=== PATIENT | female | born 1940 | race Caucasian/White ===

== ENCOUNTER 2018-04-30 19:29 | Inpatient (IN) | payer MEDICARE ==
[~2018-04-30] VITALS: Ht 157.5 cm; Wt 60.7 kg
[~2018-04-30 19:29] MED LIST: ASPI-650 PO; ASPI325T92 PO; ATOR10TA9 PO; CARB100T4 PO; CARB200T PO; CEFD300C37 PO; CELE200C PO; DOCU-131 PO; GABA300C10 PO; LEVE250T28 PO; OXYC1TAB7 PO
[2018-04-30 21:00] LABS: BASOPHILS # (AUTO) 0.01 x10^3/uL (0-0.1); BASOPHILS % (AUTO) 0 % (0-1); EOSINOPHILS # (AUTO) 0.06 x10^3/uL (0-0.4); EOSINOPHILS % (AUTO) 1 % (1-7); LYMPHOCYTES # (AUTO) 0.68 x10^3/uL (1-3.4); LYMPHOCYTES % (AUTO) 6 % (22-44); MD NO; MEAN CORPUSCULAR HEMOGLOBIN 30.3 pg (27.0-34.8); MEAN CORPUSCULAR VOLUME 91.9 fL (80-100); MONOCYTES # (AUTO) 0.47 x10^3/uL (0.2-0.8); MONOCYTES % (AUTO) 4 % (2-9); NEUTROPHILS # (AUTO) 9.65 x10^3/uL (1.8-6.8); NEUTROPHILS % (AUTO) 89 % (42-75); PLATELET COUNT 310 x10^3/uL (130-400); RED BLOOD COUNT 4.13 x10^6/uL (3.82-5.3); RED CELL DISTRIBUTION WIDTH 13.8 % (9.6-15.2)
[2018-04-30] MEDS ORDERED: SODIUM CHLORIDE FLUSH 10ML SYR IVF ONE (21:00)
[2018-04-30] MEDS ORDERED: SODIUM CHLORIDE 0.9% 1,000ML IVBOLUS ONE (21:00)
[2018-04-30 21:11] LABS: ALANINE AMINOTRANSFERASE 40 U/L (12-78); ALBUMIN 3.2 g/dL (3.4-5.0); ANION GAP 8 mmol/L (5-15); CHLORIDE 111 mmol/L (98-107); CREATININE 1.66 mg/dL (0.55-1.02)
[2018-04-30 21:13] LABS: MICROSCOPIC AUTO
[2018-04-30 21:16] LABS: ALKALINE PHOSPHATASE 107 U/L (45-117); BILIRUBIN,TOTAL 0.2 mg/dL (0.2-1.0); TOTAL PROTEIN 7.4 g/dL (6.4-8.2); TROPONIN I < 0.015 ng/mL (0.000-0.045)
[2018-04-30 21:17] LABS: CULTURE INDICATED? YES
[2018-04-30] MEDS ORDERED: CEFTRIAXONE PMX 1GM/50ML 50 ML IV ONE ×2 (21:30→22:30)
[2018-04-30] MEDS ORDERED: CEFTRIAXONE PMX 1GM/50ML 50 ML ONE (21:46)
[2018-04-30] MEDS ORDERED: SODIUM CHLORIDE 0.9% 1,000 ML IV SCH (22:09)
[2018-04-30] MEDS ORDERED: BISACODYL 10 MG SUPP PR PRN (22:30)
[2018-04-30] MEDS ORDERED: POLYETHYLENE GLYCOL 17 GM PACKET PO PRN (22:30)
[2018-04-30] MEDS ORDERED: ACETAMINOPHEN 325 MG TABLET PO PRN (22:30)
[2018-04-30] MEDS ORDERED: CYCLOBENZAPRINE 10 MG TABLET PO PRN (22:30)
[2018-04-30] MEDS ORDERED: DOCUSATE 100 MG CAPSULE PO PRN (22:30)
[2018-04-30] MEDS ORDERED: morphine SULFATE 10 MG/ML, 1ML IVPush PRN (22:30)
[2018-04-30] MEDS ORDERED: hydrALAzine 20 MG/ML, 1ML IVPush PRN (22:30)
[2018-04-30] MEDS ORDERED: PROMETHAZINE 25 MG/ML, 1ML IM PRN (22:30)
[2018-04-30] MEDS ORDERED: LABETALOL 5MG/ML, 20ML IVPush PRN (22:30)
[2018-04-30] MEDS: CARBAMAZEPINE 200 MG TABLET PO SCH (23:07)
[2018-04-30] MEDS: HEPARIN 5,000 UNITS/ML, 1ML SQ SCH (23:07)
[2018-04-30 23:11] LABS: FREE T4 (FREE THYROXINE) 0.72 ng/dL (0.76-1.46); THYROID STIMULATING HORMONE 0.999 mIU/L (0.358-3.740)
[2018-04-30 23:28] VITALS: BP 115/70
[2018-05-01 00:38] VITALS: BP 99/60
[2018-05-01 04:28] LABS: BASOPHILS # (AUTO) 0.03 x10^3/uL (0-0.1); BASOPHILS % (AUTO) 0 % (0-1); EOSINOPHILS # (AUTO) 0.19 x10^3/uL (0-0.4); EOSINOPHILS % (AUTO) 2 % (1-7); LYMPHOCYTES # (AUTO) 1.48 x10^3/uL (1-3.4); LYMPHOCYTES % (AUTO) 16 % (22-44); MD NO; MEAN CORPUSCULAR HEMOGLOBIN 30.7 pg (27.0-34.8); MEAN CORPUSCULAR HGB CONC 33.4 g/dL (32.4-35.8); MEAN CORPUSCULAR VOLUME 91.7 fL (80-100); MEAN PLATELET VOLUME 8.1 fL (7.4-10.4); MONOCYTES # (AUTO) 0.53 x10^3/uL (0.2-0.8); MONOCYTES % (AUTO) 6 % (2-9); NEUTROPHILS # (AUTO) 6.91 x10^3/uL (1.8-6.8); NEUTROPHILS % (AUTO) 76 % (42-75); PLATELET COUNT 249 x10^3/uL (130-400); RED BLOOD COUNT 3.29 x10^6/uL (3.82-5.3); RED CELL DISTRIBUTION WIDTH 13.6 % (9.6-15.2)
[2018-05-01 04:32] LABS: ALANINE AMINOTRANSFERASE 29 U/L (12-78); ALBUMIN 2.5 g/dL (3.4-5.0); ANION GAP 7 mmol/L (5-15); CALCIUM 7.1 mg/dL (8.5-10.1); CHLORIDE 115 mmol/L (98-107); CREATININE 1.37 mg/dL (0.55-1.02)
[2018-05-01 04:35] LABS: ALKALINE PHOSPHATASE 77 U/L (45-117); BILIRUBIN,TOTAL 0.2 mg/dL (0.2-1.0); CHOL/HDL RATIO 4.4; CHOLESTEROL, TOTAL 144 mg/dL (140-239); HDL CHOL % 23 % (28-40); HDL CHOLESTEROL (DIRECT) 33 mg/dL (40-60); LDL CHOLESTEROL,CALCULATED 91 mg/dL (54-169); LDL/HDL RATIO 2.8 (0.5-3.0); TOTAL PROTEIN 5.8 g/dL (6.4-8.2); TRIGLYCERIDES 101 mg/dL (50-200); VLDL CHOLESTEROL 20 mg/dL (0-25)
[2018-05-01 06:58] VITALS: BP 111/62
[2018-05-01] MEDS: HEPARIN 5,000 UNITS/ML, 1ML SQ SCH ×3 (08:27→23:46)
[2018-05-01] MEDS: CARBAMAZEPINE 200 MG TABLET PO SCH ×2 (08:44→20:07)
[2018-05-01] MEDS ORDERED: GABAPENTIN 300 MG CAPSULE PO SCH (09:00)
[2018-05-01] MEDS ORDERED: GADOBUTROL 7.5 MMOL/7.5 ML PFS ONE (10:03)
[2018-05-01 13:16] VITALS: BP 111/68
[2018-05-01] MEDS: GABAPENTIN 300 MG CAPSULE PO SCH ×2 (16:11→20:06)
[2018-05-01 18:42] VITALS: BP 155/70
[2018-05-01] MEDS: CEFTRIAXONE PMX 2GM/50ML 50 ML IV SCH (20:06)
[2018-05-02 00:50] VITALS: BP 115/66
[2018-05-02 04:55] LABS: ANION GAP 7 mmol/L (5-15); CALCIUM 7.9 mg/dL (8.5-10.1); CHLORIDE 113 mmol/L (98-107); CREATININE 1.21 mg/dL (0.55-1.02)
[2018-05-02 05:07] LABS: BASOPHILS # (AUTO) 0.03 x10^3/uL (0-0.1); BASOPHILS % (AUTO) 0 % (0-1); EOSINOPHILS # (AUTO) 0.26 x10^3/uL (0-0.4); EOSINOPHILS % (AUTO) 4 % (1-7); LYMPHOCYTES # (AUTO) 1.36 x10^3/uL (1-3.4); LYMPHOCYTES % (AUTO) 21 % (22-44); MD NO; MEAN CORPUSCULAR HEMOGLOBIN 30.8 pg (27.0-34.8); MEAN CORPUSCULAR VOLUME 93.4 fL (80-100); MEAN PLATELET VOLUME 8.2 fL (7.4-10.4); MONOCYTES # (AUTO) 0.57 x10^3/uL (0.2-0.8); MONOCYTES % (AUTO) 9 % (2-9); NEUTROPHILS # (AUTO) 4.34 x10^3/uL (1.8-6.8); NEUTROPHILS % (AUTO) 66 % (42-75); PLATELET COUNT 222 x10^3/uL (130-400); RED BLOOD COUNT 3.57 x10^6/uL (3.82-5.3); RED CELL DISTRIBUTION WIDTH 14.1 % (9.6-15.2)
[2018-05-02 06:29] VITALS: BP 123/65
[2018-05-02] MEDS: GABAPENTIN 300 MG CAPSULE PO SCH ×3 (09:11→20:21)
[2018-05-02] MEDS: CARBAMAZEPINE 200 MG TABLET PO SCH ×2 (09:13→20:21)
[2018-05-02] MEDS: HEPARIN 5,000 UNITS/ML, 1ML SQ SCH ×2 (09:16→16:54)
[2018-05-02 12:13] VITALS: BP 129/69
[2018-05-02] MEDS: CEFTRIAXONE PMX 2GM/50ML 50 ML IV SCH (20:20)
[2018-05-02 20:39] VITALS: BP 120/64
[2018-05-03] MEDS: HEPARIN 5,000 UNITS/ML, 1ML SQ SCH ×3 (00:50→17:10)
[2018-05-03 01:45] VITALS: BP 116/71
[2018-05-03 04:26] LABS: BASOPHILS # (AUTO) 0.02 x10^3/uL (0-0.1); BASOPHILS % (AUTO) 0 % (0-1); EOSINOPHILS # (AUTO) 0.25 x10^3/uL (0-0.4); EOSINOPHILS % (AUTO) 3 % (1-7); LYMPHOCYTES # (AUTO) 1.32 x10^3/uL (1-3.4); LYMPHOCYTES % (AUTO) 18 % (22-44); MD NO; MEAN CORPUSCULAR HEMOGLOBIN 30.2 pg (27.0-34.8); MEAN CORPUSCULAR HGB CONC 32.8 g/dL (32.4-35.8); MEAN PLATELET VOLUME 7.9 fL (7.4-10.4); MONOCYTES # (AUTO) 0.71 x10^3/uL (0.2-0.8); MONOCYTES % (AUTO) 9 % (2-9); NEUTROPHILS # (AUTO) 5.22 x10^3/uL (1.8-6.8); NEUTROPHILS % (AUTO) 70 % (42-75); PLATELET COUNT 259 x10^3/uL (130-400); RED BLOOD COUNT 3.79 x10^6/uL (3.82-5.3); RED CELL DISTRIBUTION WIDTH 13.6 % (9.6-15.2)
[2018-05-03 04:40] LABS: ANION GAP 5 mmol/L (5-15); CALCIUM 7.7 mg/dL (8.5-10.1); CHLORIDE 109 mmol/L (98-107); CREATININE 1.27 mg/dL (0.55-1.02)
[2018-05-03 06:55] VITALS: BP 97/59
[2018-05-03] MEDS: GABAPENTIN 300 MG CAPSULE PO SCH ×3 (10:05→20:37)
[2018-05-03] MEDS: CARBAMAZEPINE 200 MG TABLET PO SCH ×2 (10:05→20:38)
[2018-05-03 14:27] VITALS: BP 112/70
[2018-05-03 19:43] VITALS: BP 128/72
[2018-05-04] MEDS: HEPARIN 5,000 UNITS/ML, 1ML SQ SCH ×3 (01:08→16:42)
[2018-05-04 01:48] VITALS: BP 99/60
[2018-05-04 08:33] VITALS: BP 118/64
[2018-05-04] MEDS: GABAPENTIN 300 MG CAPSULE PO SCH ×3 (08:55→21:11)
[2018-05-04] MEDS: CARBAMAZEPINE 200 MG TABLET PO SCH ×2 (08:55→21:13)
[2018-05-04 14:45] VITALS: BP 136/77
[2018-05-04 18:39] VITALS: BP 133/72
[2018-05-05 01:01] VITALS: BP 105/62
[2018-05-05] MEDS: HEPARIN 5,000 UNITS/ML, 1ML SQ SCH ×3 (01:11→16:37)
[2018-05-05] MEDS: CARBAMAZEPINE 200 MG TABLET PO SCH ×2 (09:04→20:55)
[2018-05-05] MEDS: GABAPENTIN 300 MG CAPSULE PO SCH ×3 (09:05→20:56)
[2018-05-05 09:33] VITALS: BP 138/79
[2018-05-05 13:14] LABS: OCCULT BLOOD NEGATIVE (NEGATIVE)
[2018-05-05 13:58] VITALS: BP 104/62
[2018-05-05 20:07] VITALS: BP 118/64
[2018-05-06 00:51] VITALS: BP 108/66
[2018-05-06] MEDS: HEPARIN 5,000 UNITS/ML, 1ML SQ SCH ×3 (00:54→17:11)
[2018-05-06] MEDS ORDERED: ERGOCALCIFEROL 50,000 UNIT CAPSULE PO SCH (07:00)
[2018-05-06 07:30] VITALS: BP 113/80
[2018-05-06] MEDS: GABAPENTIN 300 MG CAPSULE PO SCH ×3 (08:46→21:31)
[2018-05-06] MEDS: CARBAMAZEPINE 200 MG TABLET PO SCH ×2 (08:46→21:32)
[2018-05-06 13:39] VITALS: BP 121/76
[2018-05-06 19:23] VITALS: BP 116/68
[2018-05-07 01:38] VITALS: BP 115/67
[2018-05-07] MEDS: HEPARIN 5,000 UNITS/ML, 1ML SQ SCH ×2 (03:28→11:59)
[2018-05-07 08:57] VITALS: BP 132/70
[2018-05-07] MEDS: CARBAMAZEPINE 200 MG TABLET PO SCH ×2 (09:54→19:14)
[2018-05-07] MEDS: GABAPENTIN 300 MG CAPSULE PO SCH ×2 (09:54→16:23)
[2018-05-07] MEDS ORDERED: ERGO500017 PO (13:25)
[2018-05-07] MEDS ORDERED: ACET325T14 PO (13:25)
[2018-05-07 14:21] VITALS: BP 144/79
== END 2018-05-07 19:48 | disposition short-term general hospital (02) | DRG 54 ==
LOC: ED 21:45 → 3NW 21:53 → ED 21:58
PROVIDERS: ADMIT Internal Medicine; ATTEND Internal Medicine
DX: D32.9 Benign neoplasm of meninges, unspecified (principal); N17.0 Acute kidney failure with tubular necrosis; G40.89 Other seizures; N30.90 Cystitis, unspecified without hematuria; E86.0 Dehydration; M47.816 Spondylosis without myelopathy or radiculopathy, lumbar region; E78.5 Hyperlipidemia, unspecified; B96.20 Unspecified Escherichia coli [E. coli] as the cause of diseases classified elsewhere; Z96.641 Presence of right artificial hip joint; M51.36 Other intervertebral disc degeneration, lumbar region; D18.09 Hemangioma of other sites; E55.9 Vitamin D deficiency, unspecified; K80.20 Calculus of gallbladder without cholecystitis without obstruction; Z85.528 Personal history of other malignant neoplasm of kidney; Z86.011 Personal history of benign neoplasm of the brain; Z90.710 Acquired absence of both cervix and uterus; Z90.5 Acquired absence of kidney; Z88.2 Allergy status to sulfonamides; Z88.8 Allergy status to other drugs, medicaments and biological substances; Z90.49 Acquired absence of other specified parts of digestive tract
CPT/HCPCS: 36415; 70450; 70553; 71045; 72158; 80048; 80053; 80061; 81001; 82272; 82306; 82607; 83036; 83735; 84439; 84443; 84484; 85025; 87077; 87086; 87186; 93005; 96365; 96366; A9585; G0378; J0696; J1644; J7030

== ENCOUNTER 2018-05-16 16:57 | Inpatient (IN) | payer MEDICARE ==
[~2018-05-16] VITALS: Ht 157.5 cm; Wt 66.0 kg
[~2018-05-16 16:57] MED LIST changes: +ACET325T14 PO; +ERGO500017 PO
[2018-05-16 17:50] VITALS: BP 126/67
[2018-05-16] MEDS ORDERED: ONDANSETRON ODT 4 MG PO PRN (19:30)
[2018-05-16] MEDS ORDERED: PLEASE ENTER HEIGHT AND WEIGHT MC SCH (19:30)
[2018-05-16] MEDS ORDERED: ERGOCALCIFEROL 50,000 UNIT CAPSULE PO SCH (19:30)
[2018-05-16] MEDS ORDERED: PROMETHAZINE 25 MG/ML, 1ML IM PRN (19:30)
[2018-05-16] MEDS ORDERED: LABETALOL 5MG/ML, 20ML IVPush PRN (19:30)
[2018-05-16] MEDS ORDERED: GABAPENTIN 300 MG CAPSULE PO PRN (19:30)
[2018-05-16] MEDS ORDERED: ONDANSETRON 2MG/ML, 2ML IVPush PRN (19:30)
[2018-05-16] MEDS ORDERED: hydrALAzine 20 MG/ML, 1ML IVPush PRN (19:30)
[2018-05-16 19:54] LABS: BASOPHILS # (AUTO) 0.02 x10^3/uL (0-0.1); BASOPHILS % (AUTO) 0 % (0-1); EOSINOPHILS # (AUTO) 0.02 x10^3/uL (0-0.4); EOSINOPHILS % (AUTO) 0 % (1-7); LYMPHOCYTES # (AUTO) 0.94 x10^3/uL (1-3.4); LYMPHOCYTES % (AUTO) 9 % (22-44); MD NO; MEAN CORPUSCULAR HGB CONC 33.3 g/dL (32.4-35.8); MEAN CORPUSCULAR VOLUME 93.1 fL (80-100); MEAN PLATELET VOLUME 7.7 fL (7.4-10.4); MONOCYTES # (AUTO) 0.46 x10^3/uL (0.2-0.8); MONOCYTES % (AUTO) 4 % (2-9); NEUTROPHILS # (AUTO) 9.48 x10^3/uL (1.8-6.8); NEUTROPHILS % (AUTO) 87 % (42-75); PLATELET COUNT 371 x10^3/uL (130-400); RED BLOOD COUNT 3.65 x10^6/uL (3.82-5.3); RED CELL DISTRIBUTION WIDTH 13.6 % (9.6-15.2)
[2018-05-16] MEDS ORDERED: DIAZEPAM 5 MG TABLET PO PRN (20:00)
[2018-05-16] MEDS ORDERED: OXYcodone IR 5MG TABLET PO PRN ×2 (20:00→21:00)
[2018-05-16] MEDS ORDERED: ACETAMINOPHEN 325 MG TABLET PO PRN (20:00)
[2018-05-16 20:06] LABS: ANION GAP 10 mmol/L (5-15); CALCIUM 8.5 mg/dL (8.5-10.1); CHLORIDE 106 mmol/L (98-107); CREATININE 0.93 mg/dL (0.55-1.02)
[2018-05-16 20:21] VITALS: BP 122/73
[2018-05-16] MEDS ORDERED: OXYcodone IR 5MG TABLET ONE (20:24)
[2018-05-16] MEDS ORDERED: DEXAMETHASONE 1 MG TABLET PO SCH (21:00)
[2018-05-17] MEDS: OXYcodone IR 5MG TABLET PO PRN (01:23)
[2018-05-17 01:54] VITALS: BP 145/75
[2018-05-17] MEDS ORDERED: OXYcodone IR 5MG TABLET PO PRN (05:00)
[2018-05-17 06:53] VITALS: BP 132/61
[2018-05-17] MEDS ORDERED: MAGNESIUM HYDROXIDE 8%, 30ML UDC PO PRN (07:30)
[2018-05-17] MEDS ORDERED: NYSTATIN TOPICAL POWDER 15GM TP PRN (07:30)
[2018-05-17] MEDS: POLYETHYLENE GLYCOL 17 GM PACKET PO SCH (07:56)
[2018-05-17] MEDS: GABAPENTIN 300 MG CAPSULE PO SCH ×3 (08:10→20:51)
[2018-05-17] MEDS: AMLODIPINE 5 MG TABLET PO SCH (08:10)
[2018-05-17] MEDS: PANTOPROZOLE 40MG TABLET PO SCH (08:10)
[2018-05-17] MEDS: DEXAMETHASONE 1 MG TABLET PO SCH (08:10)
[2018-05-17] MEDS: DOCUSATE 100 MG CAPSULE PO SCH ×3 (08:10→20:51)
[2018-05-17] MEDS: LIDODERM 5% PATCH TD SCH (08:11)
[2018-05-17] MEDS ORDERED: NYSTATIN 500,000 UNITS/5 ML UDC PO SCH (08:30)
[2018-05-17] MEDS: FLUCONAZOLE 400 MG/200 ML 200 ML IV SCH (10:55)
[2018-05-17] MEDS ORDERED: BISACODYL 10 MG SUPP PR PRN (11:00)
[2018-05-17 12:46] VITALS: BP 125/68
[2018-05-17] MEDS: NYSTATIN 500,000 UNITS/5 ML UDC PO SCH ×3 (13:58→20:51)
[2018-05-17 19:06] VITALS: BP 107/69
[2018-05-17] MEDS: MELATONIN 3 MG TABLET PO SCH (20:50)
[2018-05-18 02:36] VITALS: BP 98/61
[2018-05-18] MEDS: NYSTATIN 500,000 UNITS/5 ML UDC PO SCH ×4 (05:58→20:47)
[2018-05-18 07:29] VITALS: BP 116/65
[2018-05-18] MEDS ORDERED: ERGOCALCIFEROL 50,000 UNIT CAPSULE PO SCH (07:30)
[2018-05-18 08:08] LABS: ANION GAP 9 mmol/L (5-15); CHLORIDE 107 mmol/L (98-107); CREATININE 0.99 mg/dL (0.55-1.02)
[2018-05-18] MEDS: AMLODIPINE 5 MG TABLET PO SCH (08:20)
[2018-05-18] MEDS: PANTOPROZOLE 40MG TABLET PO SCH (08:20)
[2018-05-18] MEDS: POLYETHYLENE GLYCOL 17 GM PACKET PO SCH (08:20)
[2018-05-18] MEDS: DOCUSATE 100 MG CAPSULE PO SCH ×2 (08:20→20:47)
[2018-05-18] MEDS: DEXAMETHASONE 1 MG TABLET PO SCH (08:20)
[2018-05-18] MEDS: LIDODERM 5% PATCH TD SCH (08:20)
[2018-05-18] MEDS: GABAPENTIN 300 MG CAPSULE PO SCH ×3 (08:20→20:47)
[2018-05-18 08:22] LABS: BASOPHILS # (AUTO) 0.03 x10^3/uL (0-0.1); BASOPHILS % (AUTO) 0 % (0-1); EOSINOPHILS # (AUTO) 0.04 x10^3/uL (0-0.4); EOSINOPHILS % (AUTO) 0 % (1-7); LYMPHOCYTES # (AUTO) 0.73 x10^3/uL (1-3.4); LYMPHOCYTES % (AUTO) 5 % (22-44); MD NO; MEAN CORPUSCULAR HEMOGLOBIN 30.8 pg (27.0-34.8); MEAN CORPUSCULAR VOLUME 93.4 fL (80-100); MEAN PLATELET VOLUME 8.3 fL (7.4-10.4); MONOCYTES # (AUTO) 0.64 x10^3/uL (0.2-0.8); MONOCYTES % (AUTO) 5 % (2-9); NEUTROPHILS # (AUTO) 12.97 x10^3/uL (1.8-6.8); NEUTROPHILS % (AUTO) 90 % (42-75); PLATELET COUNT 375 x10^3/uL (130-400); RED BLOOD COUNT 3.84 x10^6/uL (3.82-5.3); RED CELL DISTRIBUTION WIDTH 14.1 % (9.6-15.2)
[2018-05-18] MEDS: FLUCONAZOLE 400 MG/200 ML 200 ML IV SCH (09:22)
[2018-05-18] MEDS: SODIUM CHLORIDE 0.45% 1,000 ML IV SCH ×2 (09:58→16:25)
[2018-05-18] MEDS: AMPICILLIN/SULBACTAM 3 GM in SODIUM CHLORIDE 0.9% 100 ML IV SCH ×2 (12:43→18:02)
[2018-05-18 13:02] VITALS: BP 108/69
[2018-05-18 13:10] LABS: MICROSCOPIC AUTO
[2018-05-18 13:12] LABS: CULTURE INDICATED? NO
[2018-05-18] MEDS: DOXYCYCLINE 100 MG in DEXTROSE 5% 250 ML IV SCH (13:48)
[2018-05-18] MEDS: OXYcodone IR 5MG TABLET PO PRN ×2 (13:49→20:47)
[2018-05-18 20:45] VITALS: BP 104/66
[2018-05-18] MEDS: MELATONIN 3 MG TABLET PO SCH (20:47)
[2018-05-19] MEDS: AMPICILLIN/SULBACTAM 3 GM in SODIUM CHLORIDE 0.9% 100 ML IV SCH ×4 (00:41→19:11)
[2018-05-19] MEDS: DOXYCYCLINE 100 MG in DEXTROSE 5% 250 ML IV SCH ×2 (01:48→13:30)
[2018-05-19] MEDS: SODIUM CHLORIDE 0.45% 1,000 ML IV SCH ×2 (01:48→17:08)
[2018-05-19 02:22] VITALS: BP 108/70
[2018-05-19 04:58] LABS: ALBUMIN 2.4 g/dL (3.4-5.0); ANION GAP 9 mmol/L (5-15); BASOPHILS # (AUTO) 0.01 x10^3/uL (0-0.1); BASOPHILS % (AUTO) 0 % (0-1); CALCIUM 7.9 mg/dL (8.5-10.1); CHLORIDE 104 mmol/L (98-107); CREATININE 0.88 mg/dL (0.55-1.02); EOSINOPHILS # (AUTO) 0.11 x10^3/uL (0-0.4); EOSINOPHILS % (AUTO) 1 % (1-7); LYMPHOCYTES # (AUTO) 0.45 x10^3/uL (1-3.4); LYMPHOCYTES % (AUTO) 4 % (22-44); MD NO; MEAN CORPUSCULAR HEMOGLOBIN 31.4 pg (27.0-34.8); MEAN CORPUSCULAR HGB CONC 33.3 g/dL (32.4-35.8); MEAN CORPUSCULAR VOLUME 94.2 fL (80-100); MEAN PLATELET VOLUME 7.9 fL (7.4-10.4); MONOCYTES # (AUTO) 0.59 x10^3/uL (0.2-0.8); MONOCYTES % (AUTO) 5 % (2-9); NEUTROPHILS # (AUTO) 10.25 x10^3/uL (1.8-6.8); NEUTROPHILS % (AUTO) 90 % (42-75); PLATELET COUNT 287 x10^3/uL (130-400); RED BLOOD COUNT 3.26 x10^6/uL (3.82-5.3); RED CELL DISTRIBUTION WIDTH 13.7 % (9.6-15.2)
[2018-05-19] MEDS: NYSTATIN 500,000 UNITS/5 ML UDC PO SCH ×4 (06:20→20:24)
[2018-05-19] MEDS: OXYcodone IR 5MG TABLET PO PRN (06:21)
[2018-05-19 08:30] VITALS: BP 102/61
[2018-05-19] MEDS: LIDODERM 5% PATCH TD SCH (09:00)
[2018-05-19] MEDS: AMLODIPINE 5 MG TABLET PO SCH (09:14)
[2018-05-19] MEDS: DEXAMETHASONE 1 MG TABLET PO SCH (09:14)
[2018-05-19] MEDS: CARBAMAZEPINE 200 MG TABLET PO SCH ×2 (09:14→20:25)
[2018-05-19] MEDS: POLYETHYLENE GLYCOL 17 GM PACKET PO SCH (09:21)
[2018-05-19] MEDS: PANTOPROZOLE 40MG TABLET PO SCH (09:21)
[2018-05-19] MEDS: GABAPENTIN 300 MG CAPSULE PO SCH ×3 (09:21→20:25)
[2018-05-19] MEDS: DOCUSATE 100 MG CAPSULE PO SCH ×2 (09:22→20:25)
[2018-05-19] MEDS: FLUCONAZOLE 400 MG/200 ML 200 ML IV SCH (09:24)
[2018-05-19 14:25] VITALS: BP 100/64
[2018-05-19] MEDS: MELATONIN 3 MG TABLET PO SCH (20:25)
[2018-05-19 21:07] VITALS: BP 108/61
[2018-05-20] MEDS: AMPICILLIN/SULBACTAM 3 GM in SODIUM CHLORIDE 0.9% 100 ML IV SCH ×2 (01:05→06:18)
[2018-05-20] MEDS: DOXYCYCLINE 100 MG in DEXTROSE 5% 250 ML IV SCH (02:06)
[2018-05-20 03:06] VITALS: BP 109/61
[2018-05-20] MEDS: SODIUM CHLORIDE 0.45% 1,000 ML IV SCH ×3 (03:54→23:13)
[2018-05-20 05:16] LABS: BASOPHILS # (AUTO) 0.01 x10^3/uL (0-0.1); BASOPHILS % (AUTO) 0 % (0-1); EOSINOPHILS # (AUTO) 0.11 x10^3/uL (0-0.4); EOSINOPHILS % (AUTO) 1 % (1-7); LYMPHOCYTES # (AUTO) 0.46 x10^3/uL (1-3.4); LYMPHOCYTES % (AUTO) 6 % (22-44); MD NO; MEAN CORPUSCULAR HEMOGLOBIN 31.4 pg (27.0-34.8); MEAN CORPUSCULAR HGB CONC 33.6 g/dL (32.4-35.8); MEAN CORPUSCULAR VOLUME 93.6 fL (80-100); MEAN PLATELET VOLUME 7.6 fL (7.4-10.4); MONOCYTES # (AUTO) 0.46 x10^3/uL (0.2-0.8); MONOCYTES % (AUTO) 6 % (2-9); NEUTROPHILS # (AUTO) 7.37 x10^3/uL (1.8-6.8); NEUTROPHILS % (AUTO) 88 % (42-75); PLATELET COUNT 319 x10^3/uL (130-400); RED BLOOD COUNT 3.26 x10^6/uL (3.82-5.3); RED CELL DISTRIBUTION WIDTH 13.8 % (9.6-15.2)
[2018-05-20 05:18] LABS: ALBUMIN 2.7 g/dL (3.4-5.0); ANION GAP 9 mmol/L (5-15); CALCIUM 8.5 mg/dL (8.5-10.1); CHLORIDE 106 mmol/L (98-107); CREATININE 0.85 mg/dL (0.55-1.02)
[2018-05-20] MEDS: NYSTATIN 500,000 UNITS/5 ML UDC PO SCH ×4 (06:18→20:18)
[2018-05-20] MEDS: FLUCONAZOLE 400 MG/200 ML 200 ML IV SCH (08:22)
[2018-05-20] MEDS: PANTOPROZOLE 40MG TABLET PO SCH (08:22)
[2018-05-20 08:30] VITALS: BP 101/60
[2018-05-20] MEDS: DOCUSATE 100 MG CAPSULE PO SCH ×2 (09:57→20:17)
[2018-05-20] MEDS: GABAPENTIN 300 MG CAPSULE PO SCH ×3 (09:57→20:17)
[2018-05-20] MEDS: POLYETHYLENE GLYCOL 17 GM PACKET PO SCH (09:57)
[2018-05-20] MEDS: CARBAMAZEPINE 200 MG TABLET PO SCH ×2 (09:57→20:18)
[2018-05-20] MEDS: DEXAMETHASONE 1 MG TABLET PO SCH (09:57)
[2018-05-20] MEDS: AMLODIPINE 5 MG TABLET PO SCH (09:58)
[2018-05-20] MEDS: LIDODERM 5% PATCH TD SCH (10:00)
[2018-05-20] MEDS: AMOXICILLIN/CLAV 875-125MG TABLET PO SCH ×2 (13:47→20:17)
[2018-05-20 14:30] VITALS: BP 110/61
[2018-05-20] MEDS: DOXYCYCLINE 100MG TABLET PO SCH ×2 (14:44→20:17)
[2018-05-20 19:42] VITALS: BP 106/62
[2018-05-20] MEDS: MELATONIN 3 MG TABLET PO SCH (20:18)
[2018-05-21 02:00] VITALS: BP 100/54
[2018-05-21] MEDS: SODIUM CHLORIDE 0.45% 1,000 ML IV SCH (05:47)
[2018-05-21] MEDS: NYSTATIN 500,000 UNITS/5 ML UDC PO SCH ×2 (05:49→11:00)
[2018-05-21] MEDS ORDERED: DIAZ5TAB4 PO (07:48)
[2018-05-21] MEDS ORDERED: MELA3TAB2 PO (07:48)
[2018-05-21] MEDS ORDERED: DEXA1TAB5 PO (07:48)
[2018-05-21] MEDS ORDERED: CARB200T4 PO (07:48)
[2018-05-21] MEDS ORDERED: DOXY100T PO (07:48)
[2018-05-21] MEDS ORDERED: LIDO700A20 TD (07:48)
[2018-05-21] MEDS ORDERED: ERGO500017 PO (07:48)
[2018-05-21] MEDS ORDERED: PANT40TA5 PO (07:48)
[2018-05-21] MEDS ORDERED: AMOX1TAB12 PO (07:48)
[2018-05-21 08:00] VITALS: BP 97/57
[2018-05-21] MEDS: LIDODERM 5% PATCH TD SCH (09:00)
[2018-05-21] MEDS ORDERED: FLUCONAZOLE 10 MG/ML ORAL SUSP PO SCH (09:00)
[2018-05-21] MEDS: POLYETHYLENE GLYCOL 17 GM PACKET PO SCH (09:00)
[2018-05-21] MEDS: DOCUSATE 100 MG CAPSULE PO SCH (09:00)
[2018-05-21] MEDS: AMOXICILLIN/CLAV 875-125MG TABLET PO SCH (09:21)
[2018-05-21] MEDS: DOXYCYCLINE 100MG TABLET PO SCH (09:22)
[2018-05-21] MEDS: DEXAMETHASONE 1 MG TABLET PO SCH (09:22)
[2018-05-21] MEDS: PANTOPROZOLE 40MG TABLET PO SCH (09:22)
[2018-05-21] MEDS: GABAPENTIN 300 MG CAPSULE PO SCH (09:22)
[2018-05-21] MEDS: CARBAMAZEPINE 200 MG TABLET PO SCH (09:22)
[2018-05-22] MEDS ORDERED: AMLODIPINE 5 MG TABLET PO SCH (09:00)
== END 2018-05-21 11:43 | DRG 177 ==
LOC: 4NOR 16:57 → 3NW 05-18 11:08
PROVIDERS: ADMIT Hospitalist; ATTEND Hospitalist
DX: J69.0 Pneumonitis due to inhalation of food and vomit (principal); E43 Unspecified severe protein-calorie malnutrition; B37.9 Candidiasis, unspecified; D18.09 Hemangioma of other sites; D64.9 Anemia, unspecified; E78.5 Hyperlipidemia, unspecified; E55.9 Vitamin D deficiency, unspecified; Z96.641 Presence of right artificial hip joint; K44.9 Diaphragmatic hernia without obstruction or gangrene; M47.816 Spondylosis without myelopathy or radiculopathy, lumbar region; Z86.011 Personal history of benign neoplasm of the brain; Z90.710 Acquired absence of both cervix and uterus; Z88.2 Allergy status to sulfonamides; Z88.8 Allergy status to other drugs, medicaments and biological substances
CPT/HCPCS: 36415; 71045; 74230; 80048; 81001; 82040; 83735; 84100; 85025; 87040; 93005; G0378; J0295; J1450; J7060; 92523-GN

== ENCOUNTER 2018-11-28 18:08 | Inpatient (IN) | payer MEDICARE ==
[~2018-11-28] VITALS: Ht 157.5 cm; Wt 63.6 kg
[~2018-11-28 18:08] MED LIST changes: +AMOX1TAB12 PO; +CARB200T4 PO; +DEXA1TAB5 PO; +DIAZ5TAB4 PO; +DOXY100T PO; +LIDO700A20 TD; +MELA3TAB2 PO; +PANT40TA5 PO
--- NOTE | 2018-11-28 18:15 | NUR ---
PT HAS BEEN VOMITING TODAY AND HAS CHILLS, NOT FEELING WELL. DAUGHTER AT BEDSIDE.
[2018-11-28] MEDS ORDERED: ACETAMINOPHEN 325 MG TABLET PO ONE (18:30)
[2018-11-28] MEDS ORDERED: SODIUM CHLORIDE FLUSH 10ML SYR IVF ONE (18:30)
[2018-11-28] MEDS ORDERED: ACETAMINOPHEN 325 MG TABLET ONE (18:34)
[2018-11-28 18:53] LABS: BASOPHILS # (AUTO) 0.02 x10^3/uL (0-0.1); BASOPHILS % (AUTO) 0 % (0-1); EOSINOPHILS # (AUTO) 0.06 x10^3/uL (0-0.4); EOSINOPHILS % (AUTO) 1 % (1-7); LYMPHOCYTES # (AUTO) 0.54 x10^3/uL (1-3.4); LYMPHOCYTES % (AUTO) 5 % (22-44); MD NO; MEAN CORPUSCULAR HEMOGLOBIN 29.6 pg (27.0-34.8); MEAN CORPUSCULAR HGB CONC 32.9 g/dL (32.4-35.8); MEAN CORPUSCULAR VOLUME 90.1 fL (80-100); MEAN PLATELET VOLUME 8.4 fL (7.4-10.4); MONOCYTES # (AUTO) 0.26 x10^3/uL (0.2-0.8); MONOCYTES % (AUTO) 3 % (2-9); NEUTROPHILS # (AUTO) 9.67 x10^3/uL (1.8-6.8); NEUTROPHILS % (AUTO) 92 % (42-75); PLATELET COUNT 241 x10^3/uL (130-400); RED BLOOD COUNT 4.67 x10^6/uL (3.82-5.3); RED CELL DISTRIBUTION WIDTH 13.2 % (9.6-15.2)
[2018-11-28 19:03] LABS: ALANINE AMINOTRANSFERASE 13 U/L (12-78); ALBUMIN 3.2 g/dL (3.4-5.0); ANION GAP 7 mmol/L (5-15); CALCIUM 8.3 mg/dL (8.5-10.1); CHLORIDE 110 mmol/L (98-107)
[2018-11-28 19:06] LABS: ALKALINE PHOSPHATASE 102 U/L (45-117); BILIRUBIN,TOTAL 0.3 mg/dL (0.2-1.0); CREATININE 1.32 mg/dL (0.55-1.02); TOTAL PROTEIN 7.2 g/dL (6.4-8.2)
--- NOTE | 2018-11-28 19:06 | NUR ---
STRAIGHT CATH URINE SAMPLE OBTAINED AND BROUGHT TO LAB
[2018-11-28 19:22] LABS: MICROSCOPIC AUTO
[2018-11-28 19:27] LABS: CULTURE INDICATED? YES
[2018-11-28 19:55] VITALS: BP 102/62
[2018-11-28] MEDS ORDERED: CEFTRIAXONE PMX 1GM/50ML 50 ML ONE (20:19)
--- NOTE | 2018-11-28 20:24 | NUR ---
PT TOLERATED PO TYLENOL WITH WATER. ANTIBIOTICS INFUSING. AWARE OF PENDING ADMISSION
[2018-11-28] MEDS ORDERED: CEFTRIAXONE PMX 1GM/50ML 50 ML IV ONE (20:30)
--- NOTE | 2018-11-28 20:41 | NUR ---
HOSPITALIST AT BEDSIDE. REPORT GIVEN TO CARTER. AWAITING ROOM TO BE CLEANED BEFORE TRANSFERED
[2018-11-28] MEDS ORDERED: TAMS-11 PO (21:03)
[2018-11-28] MEDS ORDERED: METH500T5 PO (21:03)
[2018-11-28] MEDS ORDERED: TRAM50TA2 PO (21:03)
[2018-11-28] MEDS ORDERED: DOCU-131 PO (21:03)
[2018-11-28] MEDS ORDERED: SIME80TA15 PO (21:03)
[2018-11-28] MEDS ORDERED: FURO-93 PO (21:03)
[2018-11-28] MEDS ORDERED: PHEN-582 PO (21:03)
[2018-11-28] MEDS ORDERED: LORA0.5T PO (21:03)
[2018-11-28] MEDS ORDERED: CEFD300C37 PO (21:03)
[2018-11-28] MEDS ORDERED: LACT10SO28 PO (21:03)
[2018-11-28] MEDS ORDERED: OXYC-302 PO (21:03)
[2018-11-28] MEDS ORDERED: GABA300C10 PO (21:08)
[2018-11-28] MEDS ORDERED: CARB200T PO (21:08)
[2018-11-28] MEDS ORDERED: PROMETHAZINE 25 MG/ML, 1ML IM PRN (21:30)
[2018-11-28] MEDS ORDERED: LIDODERM 5% PATCH TD PRN (21:30)
[2018-11-28] MEDS ORDERED: TEMAZEPAM 15 MG CAPSULE PO PRN (21:30)
[2018-11-28] MEDS ORDERED: hydrALAzine 20 MG/ML, 1ML IVPush PRN (21:30)
[2018-11-28] MEDS: HEPARIN 5,000 UNITS/ML, 1ML SQ SCH (21:49)
[2018-11-28] MEDS: SODIUM CHLORIDE 0.9% 1,000 ML IV SCH (21:51)
[2018-11-29] MEDS: ACETAMINOPHEN 325 MG TABLET PO PRN ×2 (01:08→16:29)
[2018-11-29 02:08] VITALS: BP 106/63
[2018-11-29 02:18] VITALS: BP 106/63
[2018-11-29] MEDS: HEPARIN 5,000 UNITS/ML, 1ML SQ SCH ×3 (05:07→21:12)
[2018-11-29] MEDS: SODIUM CHLORIDE 0.9% 1,000 ML IV SCH ×3 (05:07→21:15)
[2018-11-29 05:54] LABS: BASOPHILS # (AUTO) 0.02 x10^3/uL (0-0.1); BASOPHILS % (AUTO) 0 % (0-1); EOSINOPHILS # (AUTO) 0.08 x10^3/uL (0-0.4); EOSINOPHILS % (AUTO) 1 % (1-7); LYMPHOCYTES # (AUTO) 1.02 x10^3/uL (1-3.4); LYMPHOCYTES % (AUTO) 16 % (22-44); MD NO; MEAN CORPUSCULAR HEMOGLOBIN 29.9 pg (27.0-34.8); MEAN CORPUSCULAR HGB CONC 32.7 g/dL (32.4-35.8); MEAN CORPUSCULAR VOLUME 91.4 fL (80-100); MEAN PLATELET VOLUME 8.4 fL (7.4-10.4); MONOCYTES # (AUTO) 0.35 x10^3/uL (0.2-0.8); MONOCYTES % (AUTO) 6 % (2-9); NEUTROPHILS % (AUTO) 77 % (42-75); PLATELET COUNT 194 x10^3/uL (130-400); RED BLOOD COUNT 4.15 x10^6/uL (3.82-5.3); RED CELL DISTRIBUTION WIDTH 13.7 % (9.6-15.2)
[2018-11-29 06:01] LABS: ANION GAP 6 mmol/L (5-15); CALCIUM 8.2 mg/dL (8.5-10.1); CHLORIDE 113 mmol/L (98-107); CREATININE 1.28 mg/dL (0.55-1.02)
[2018-11-29 06:51] VITALS: BP 114/60
[2018-11-29 09:34] LABS: CLOSTRIDIUM DIFFICILE ANTIGEN NEGATIVE; CLOSTRIDIUM DIFFICILE TOXIN NEGATIVE (Negative)
[2018-11-29] MEDS: CARBAMAZEPINE 200 MG TABLET PO SCH (09:46)
[2018-11-29] MEDS: GABAPENTIN 300 MG CAPSULE PO SCH ×3 (09:46→21:12)
[2018-11-29] MEDS: CEFTRIAXONE PMX 1GM/50ML 50 ML IV SCH ×2 (09:46→21:12)
[2018-11-29 13:02] VITALS: BP 124/61
[2018-11-29 19:39] VITALS: BP 117/65
[2018-11-30 02:42] VITALS: BP 156/74
[2018-11-30] MEDS: ACETAMINOPHEN 325 MG TABLET PO PRN ×2 (02:50→20:56)
[2018-11-30] MEDS: HEPARIN 5,000 UNITS/ML, 1ML SQ SCH ×3 (04:50→21:09)
[2018-11-30 06:06] LABS: ANION GAP 7 mmol/L (5-15); BASOPHILS # (AUTO) 0.02 x10^3/uL (0-0.1); BASOPHILS % (AUTO) 1 % (0-1); CALCIUM 8.3 mg/dL (8.5-10.1); CHLORIDE 115 mmol/L (98-107); CREATININE 1.15 mg/dL (0.55-1.02); EOSINOPHILS % (AUTO) 5 % (1-7); LYMPHOCYTES # (AUTO) 1.06 x10^3/uL (1-3.4); LYMPHOCYTES % (AUTO) 25 % (22-44); MD NO; MEAN CORPUSCULAR HEMOGLOBIN 30.1 pg (27.0-34.8); MEAN CORPUSCULAR HGB CONC 32.9 g/dL (32.4-35.8); MEAN CORPUSCULAR VOLUME 91.6 fL (80-100); MEAN PLATELET VOLUME 8.2 fL (7.4-10.4); MONOCYTES # (AUTO) 0.34 x10^3/uL (0.2-0.8); MONOCYTES % (AUTO) 8 % (2-9); NEUTROPHILS # (AUTO) 2.64 x10^3/uL (1.8-6.8); NEUTROPHILS % (AUTO) 62 % (42-75); PLATELET COUNT 165 x10^3/uL (130-400); RED BLOOD COUNT 3.73 x10^6/uL (3.82-5.3); RED CELL DISTRIBUTION WIDTH 13.5 % (9.6-15.2)
[2018-11-30 07:47] VITALS: BP 138/80
[2018-11-30] MEDS: CARBAMAZEPINE 200 MG TABLET PO SCH (08:40)
[2018-11-30] MEDS: GABAPENTIN 300 MG CAPSULE PO SCH ×3 (08:40→20:57)
[2018-11-30] MEDS: SODIUM CHLORIDE 0.9% 1,000 ML IV SCH ×2 (08:45→17:37)
[2018-11-30] MEDS: CEFTRIAXONE PMX 1GM/50ML 50 ML IV SCH ×2 (09:07→20:58)
[2018-11-30] MEDS ORDERED: PHARMACY MAY ADJ FOR RENAL FX MC PRN (09:30)
[2018-11-30] MEDS: AMPICILLIN 1 GM in SODIUM CHLORIDE 0.9% 100 ML IV SCH ×4 (10:04→21:38)
[2018-11-30 15:31] VITALS: BP 148/65
[2018-11-30 19:47] VITALS: BP 151/73
[2018-12-01] MEDS: AMPICILLIN 1 GM in SODIUM CHLORIDE 0.9% 100 ML IV SCH ×4 (01:33→13:37)
[2018-12-01] MEDS: SODIUM CHLORIDE 0.9% 1,000 ML IV SCH ×2 (01:34→13:23)
[2018-12-01 02:14] VITALS: BP 145/68
[2018-12-01] MEDS: HEPARIN 5,000 UNITS/ML, 1ML SQ SCH ×2 (05:45→13:23)
[2018-12-01] MEDS: ACETAMINOPHEN 325 MG TABLET PO PRN ×2 (05:47→13:21)
[2018-12-01 07:34] VITALS: BP 114/52
[2018-12-01] MEDS: GABAPENTIN 300 MG CAPSULE PO SCH ×2 (09:07→16:35)
[2018-12-01] MEDS: CARBAMAZEPINE 200 MG TABLET PO SCH (09:07)
[2018-12-01] MEDS: CEFTRIAXONE PMX 1GM/50ML 50 ML IV SCH (09:08)
[2018-12-01] MEDS ORDERED: AMOX-291 PO (13:52)
[2018-12-01 15:05] VITALS: BP 117/55
== END 2018-12-01 17:28 | disposition home or self-care (01) | DRG 391 ==
LOC: ED 19:08 → EDIP 20:02 → 3NE 21:15
PROVIDERS: ADMIT Internal Medicine; ATTEND Internal Medicine
PROC: 0T9B70Z Drainage of Bladder with Drainage Device, Via Natural or Artificial Opening (ICD-10-PCS; principal; 2018-11-28)
DX: A08.4 Viral intestinal infection, unspecified (principal); N17.0 Acute kidney failure with tubular necrosis; N39.0 Urinary tract infection, site not specified; B95.2 Enterococcus as the cause of diseases classified elsewhere; E78.5 Hyperlipidemia, unspecified; K44.9 Diaphragmatic hernia without obstruction or gangrene; M51.36 Other intervertebral disc degeneration, lumbar region; Z96.641 Presence of right artificial hip joint; Z86.011 Personal history of benign neoplasm of the brain; Z90.49 Acquired absence of other specified parts of digestive tract; Z90.710 Acquired absence of both cervix and uterus; Z90.5 Acquired absence of kidney; Z88.2 Allergy status to sulfonamides; Z88.6 Allergy status to analgesic agent; Z88.8 Allergy status to other drugs, medicaments and biological substances
CPT/HCPCS: 36415; 71045; 80048; 80053; 81001; 83605; 83690; 83735; 85025; 87040; 87077; 87086; 87186; 87324; 93005; 99285; G0378; J0290; J0696; J1644; J7030